=== PATIENT | male | born 1985 | race Caucasian/White ===

== ENCOUNTER 2022-05-14 18:10 | Emergency (ER) | payer OTHER ==
[2022-05-14] MEDS ORDERED: Lidocaine 2% PF 5 ML VIAL ONE (18:19)
== END 2022-05-14 18:51 | disposition home or self-care (01) ==
LOC: BURERS 18:10 → EDBD 18:10 → BURERS 18:51
DX: T16.1XXA Foreign body in right ear, initial encounter (principal); Z87.442 Personal history of urinary calculi
CPT/HCPCS: 99282; J2001

== ENCOUNTER 2022-07-03 16:31 | Emergency (ER) | payer OTHER ==
[2022-07-03 17:00] LABS: #Basophils 0.1 thou/uL (0.0-0.2); #Eosinphils 0.2 thou/uL (0.0-0.7); #Lymphocytes 2.1 thou/uL (1.20-3.40); #Monocytes 0.6 thou/uL (0.11-0.59); #Neutrophils 4.7 thou/uL (1.40-6.50); %Basophils 1.1 % (0.0-1.0); %Eosinophils 2.4 % (0.0-10.0); %Lymphocytes 27.6 % (21.0-51.0); %Monocytes 7.5 % (0.0-10.0); %Neutrophils 61.4 % (42.0-75.0); Hemoglobin 13.4 g/dL (14.0-18.0); Mean Corpuscular Hemoglobin 32.5 pg (27.0-31.0); Mean Corpuscular Volume 90.4 fl (78.0-98.0); Mean Platelet Volume 6.4 fL (7.4-10.4); Platelet Count 269 10x3/uL (130-400); RBC Distribution Width 11.3 % (11.5-14.5); Red Blood Cell (RBC) Count 4.13 mill/uL (4.70-6.10); White Blood Cell (WBC) Count 7.7 10x3/uL (4.8-10.8)
[2022-07-03 17:06] LABS: Bilirubin Negative (Negative); Blood, Urine Moderate (Negative); Clarity Clear (Clear); Glucose, Urine (Dipstick) Negative (Negative); Ketone, Urine Negative (Negative); Leukocyte Negative (Negative); Nitrite Negative (Negative); Protein, Urine (Dipstick) Trace mg/dL (Neg-Trace); Urobilinogen 0.2 mg/dL (Less than 2)
[2022-07-03 17:08] LABS: Specific Gravity, Urine 1.022 (1.002-1.036)
[2022-07-03 17:13] LABS: Squamous Epithelial 0-3 HPF (0-3); WBC/HPF 0-3 HPF (0-3)
[2022-07-03 17:14] LABS: Bacteria/HPF None Seen HPF (None Seen); Mucous/LPF 1+ LPF (<2+)
[2022-07-03 17:18] LABS: ALT (SGPT) 28 U/L (8-55); AST (SGOT) 20 U/L (5-34); Albumin 4.5 g/dL (3.5-5.0); Alkaline Phosphatase 58 U/L (40-110); Anion Gap 14 mmol/L (10-20); BUN (Urea Nitrogen) 10 mg/dL (8.9-20.6); Bilirubin, Total 0.6 mg/dL (0.2-1.2); Calc. Creatinine Clearance 0 mL/min (70-130); Calcium 9.5 mg/dL (7.8-10.44); Carbon Dioxide 26 mmol/L (22-29); Estimated GFR 91; Glucose 102 mg/dL (70-105); Protein, Total 7.5 g/dL (6.0-8.3)
[2022-07-03 17:20] LABS: CK (CPK) 192 U/L (30-200); CRP (Inflammatory) Less than 0.50 mg/dL (= or < 0.5); Lipase 32 U/L (8-78)
[2022-07-03 17:21] LABS: Chloride 106 mmol/L (98-107); Potassium 3.8 mmol/L (3.5-5.1); Sodium 142 mmol/L (136-145)
== END 2022-07-03 18:31 | disposition home or self-care (01) ==
LOC: BURERS 16:31
DX: N13.2 Hydronephrosis with renal and ureteral calculous obstruction (principal)
CPT/HCPCS: 74176; 80053; 81003; 81015; 82550; 83605; 83690; 85025; 86140